=== PATIENT | female | born 1995 | race Caucasian/White ===

== ENCOUNTER 2018-09-30 17:57 | Emergency (ER) | payer OTHER ==
[~2018-09-30] VITALS: Ht 160 cm; Wt 89.8 kg
[2018-09-30 18:26] VITALS: Ht 160 cm; Wt 89.8 kg
[2018-09-30 20:29] VITALS: BP 120/87
== END 2018-09-30 20:29 | disposition home or self-care (01) ==
LOC: ED 17:57
DX: J02.0 Streptococcal pharyngitis (principal)
CPT/HCPCS: J2930; J7512

== ENCOUNTER 2019-01-06 20:00 | Emergency (ER) | payer OTHER ==
[~2019-01-06] VITALS: Ht 162.6 cm; Wt 95.7 kg
[2019-01-06 20:05] VITALS: Ht 162.6 cm; Wt 95.7 kg
[2019-01-06 22:14] VITALS: BP 123/86
== END 2019-01-06 22:14 | disposition home or self-care (01) ==
LOC: ED 20:00
DX: S50.362A Insect bite (nonvenomous) of left elbow, initial encounter (principal); L03.114 Cellulitis of left upper limb; W57.XXXA Bitten or stung by nonvenomous insect and other nonvenomous arthropods, initial encounter; Y93.89 Activity, other specified; Y92.89 Other specified places as the place of occurrence of the external cause; Y99.8 Other external cause status

== ENCOUNTER 2019-01-27 23:36 | Emergency (ER) | payer OTHER ==
[~2019-01-27] VITALS: Ht 160 cm; Wt 96.6 kg
[2019-01-27 23:55] VITALS: Ht 160 cm; Wt 96.6 kg
[2019-01-28 01:54] LABS: BASOPHIL % 0.4 % (0-2); PLATELET COUNT 318 x10^3mcL (130-400); RED CELL DISTRIBUTION WIDTH 13.1 % (11.5-14.5)
[2019-01-28 02:06] LABS: CALCIUM 8.7 mg/dL (8.5-10.1); CARBON DIOXIDE 25.7 mmol/L (21-32); CHLORIDE SERUM 106 mmol/L (98-107); CREATININE SERUM 0.8 mg/dL (0.6-1.0); GFR1 > 60 mL/min; GLUCOSE SERUM 91 mg/dL (74-106); POTASSIUM SERUM 3.5 mmol/L (3.5-5.1); SODIUM SERUM 141 mmol/L (136-145)
[2019-01-28 02:11] LABS: ALBUMIN 3.9 g/dL (3.4-5.0); ALKALINE PHOSPHATASE 91 U/L (46-116); ALT/SGPT 37 U/L (14-59); AST/SGOT 22 U/L (15-37); BILIRUBIN TOTAL 0.33 mg/dL (0.20-1.00); TOTAL PROTEIN, SERUM 7.5 g/dL (6.4-8.2)
[2019-01-28 03:01] VITALS: BP 129/75
== END 2019-01-28 03:01 | disposition home or self-care (01) ==
LOC: ED 23:36
PROVIDERS: Emergency Medicine
DX: R09.1 Pleurisy (principal); R05 Cough; R42 Dizziness and giddiness; M54.6 Pain in thoracic spine
CPT/HCPCS: 36415; 85378; J1885; J2270; Q0092

== ENCOUNTER 2019-04-08 19:17 | Emergency (ER) | payer OTHER ==
[~2019-04-08] VITALS: Ht 160 cm; Wt 101.6 kg
[2019-04-08 20:16] VITALS: Ht 160 cm; Wt 101.6 kg
[2019-04-08 21:25] VITALS: BP 136/92
== END 2019-04-08 21:25 | disposition home or self-care (01) ==
LOC: ED 19:17
DX: S30.861A Insect bite (nonvenomous) of abdominal wall, initial encounter (principal); S50.361A Insect bite (nonvenomous) of right elbow, initial encounter; L03.311 Cellulitis of abdominal wall; L03.113 Cellulitis of right upper limb; W57.XXXA Bitten or stung by nonvenomous insect and other nonvenomous arthropods, initial encounter; Y93.89 Activity, other specified; Y92.89 Other specified places as the place of occurrence of the external cause; Y99.8 Other external cause status
CPT/HCPCS: J0696

== ENCOUNTER 2019-06-07 16:54 | Emergency (ER) | payer OTHER ==
[~2019-06-07] VITALS: Ht 162.6 cm; Wt 100.2 kg
[2019-06-07 16:59] VITALS: BP 140/81; Ht 162.6 cm; Wt 100.2 kg
== END 2019-06-07 17:39 | disposition home or self-care (01) ==
LOC: ED 16:54
DX: L25.9 Unspecified contact dermatitis, unspecified cause (principal)

== ENCOUNTER 2019-11-06 14:07 | Emergency (ER) | payer OTHER ==
[~2019-11-06] VITALS: Ht 160 cm; Wt 91.6 kg
[2019-11-06 14:13] VITALS: Ht 160 cm; Wt 91.6 kg
[2019-11-06 15:00] LABS: BASOPHIL % 1.2 % (0-2); PLATELET COUNT 303 x10^3mcL (130-400); RED CELL DISTRIBUTION WIDTH 13.3 % (11.5-14.5)
[2019-11-06 15:31] LABS: CARBON DIOXIDE 22.4 mmol/L (21-32); CHLORIDE SERUM 104 mmol/L (98-107); CREATININE SERUM 0.9 mg/dL (0.6-1.0); GFR1 > 60 mL/min; GLUCOSE SERUM 104 mg/dL (74-106); POTASSIUM SERUM 3.8 mmol/L (3.5-5.1); SODIUM SERUM 140 mmol/L (136-145)
[2019-11-06 15:32] LABS: ALBUMIN 4.2 g/dL (3.4-5.0); ALKALINE PHOSPHATASE 82 U/L (46-116); ALT/SGPT 29 U/L (14-59); AST/SGOT 20 U/L (15-37); BILIRUBIN TOTAL 0.78 mg/dL (0.20-1.00); LIPASE 76 IU/L (73-393); TOTAL PROTEIN, SERUM 7.9 g/dL (6.4-8.2)
[2019-11-06 17:11] VITALS: BP 109/50
== END 2019-11-06 17:11 | disposition home or self-care (01) ==
LOC: ED 14:07
PROVIDERS: Specialist
DX: R10.10 Upper abdominal pain, unspecified (principal)
CPT/HCPCS: J1885; J2405; Q0092

== ENCOUNTER 2020-04-24 06:56 | Emergency (ER) | payer OTHER ==
[~2020-04-24] VITALS: Ht 160 cm; Wt 97.7 kg
[2020-04-24 07:02] VITALS: BP 130/66; Ht 160 cm; Wt 97.7 kg
== END 2020-04-24 07:33 | disposition home or self-care (01) ==
LOC: ED 06:56
DX: N39.0 Urinary tract infection, site not specified (principal); N76.0 Acute vaginitis

== ENCOUNTER 2020-05-08 17:06 | Emergency (ER) | payer OTHER, SELFPAY ==
[~2020-05-08] VITALS: Ht 160 cm; Wt 95.3 kg
[2020-05-08 17:09] VITALS: BP 141/84; Ht 160 cm; Wt 95.3 kg
== END 2020-05-08 18:30 | disposition home or self-care (01) ==
LOC: ED 17:06
DX: U07.1 COVID-19 (principal)
CPT/HCPCS: Q0092; U0003-CS

== ENCOUNTER 2020-11-14 23:43 | Emergency (ER) | payer OTHER ==
[~2020-11-14] VITALS: Ht 162.6 cm; Wt 100.2 kg
[2020-11-14 23:57] VITALS: BP 121/72; Ht 162.6 cm; Wt 100.2 kg
== END 2020-11-15 01:15 | disposition home or self-care (01) ==
LOC: ED 23:43
DX: S39.012A Strain of muscle, fascia and tendon of lower back, initial encounter (principal); K59.00 Constipation, unspecified; X58.XXXA Exposure to other specified factors, initial encounter; Y93.B9 Activity, other involving muscle strengthening exercises; Y92.89 Other specified places as the place of occurrence of the external cause; Y99.8 Other external cause status
CPT/HCPCS: J1885